=== PATIENT | female | born 1955 | race Caucasian/White ===

== ENCOUNTER → 2023-08-06 11:10 | Outpatient (REF) | payer BC, SELFPAY | LOC: RAD 11:10 | PROVIDERS: ATTENDING PHYSICIAN Physician Assistant | DX: M79.672 Pain in left foot (principal) | CPT/HCPCS: 73610; 73630 ==

== ENCOUNTER → 2023-12-31 09:12 | Outpatient (REF) | payer BC, SELFPAY ==
[2023-12-31 10:47] LABS: ALT (SGPT) 18 U/L (0-35); AST (SGOT) 20 U/L (14-36); Albumin 5.1 g/dl (3.5-5.0); Alkaline Phosphatase 75 U/L (38-126); Blood Urea Nitrogen 9 mg/dl (7-17); Calcium 9.7 mg/dl (8.4-10.2); Carbon Dioxide 32 mmol/L (22-30); Chloride 93 mmol/L (98-107); Glucose 89 mg/dl (70-99); HDL Cholesterol 83 mg/dl; LDL Cholesterol, Calculated 86 mg/dl; Potassium 3.3 mmol/L (3.5-5.1); Sodium 141 mmol/L (135-145); Total Bilirubin 0.9 mg/dl (0.2-1.3); Total Cholesterol 186 mg/dl (50-199); Total Protein 7.7 g/dl (6.3-8.2); Triglyceride 88 mg/dl (10-149); Very Low Density Lipoprotein 17 mg/dl (0-30); eGFR > 60.00
== END ==
LOC: REG 09:12
PROVIDERS: ATTENDING PHYSICIAN Family Medicine
DX: I10 Essential (primary) hypertension (principal); E78.2 Mixed hyperlipidemia
CPT/HCPCS: 36415; 80053; 80061

== ENCOUNTER → 2024-09-22 07:34 | Outpatient (REF) | payer BC, SELFPAY ==
[2024-09-22 10:26] LABS: ALT (SGPT) 20 U/L (0-35); AST (SGOT) 19 U/L (14-36); Albumin 5.1 g/dl (3.5-5.0); Alkaline Phosphatase 73 U/L (38-126); Blood Urea Nitrogen 12 mg/dl (7-17); Carbon Dioxide 29 mmol/L (22-30); Chloride 98 mmol/L (98-107); Glucose 81 mg/dl (70-99); HDL Cholesterol 101 mg/dl; LDL Cholesterol, Calculated 97 mg/dl; Potassium 3.7 mmol/L (3.5-5.1); Sodium 140 mmol/L (135-145); Total Bilirubin 1.2 mg/dl (0.2-1.3); Total Cholesterol 212 mg/dl (50-199); Triglyceride 73 mg/dl (10-149); Very Low Density Lipoprotein 14 mg/dl (0-30); eGFR > 60.00
== END ==
LOC: REG 07:34
PROVIDERS: ATTENDING PHYSICIAN Family Medicine
DX: I10 Essential (primary) hypertension (principal); E78.2 Mixed hyperlipidemia
CPT/HCPCS: 36415; 80053; 80061